=== PATIENT | female | born 1940 | race Caucasian/White ===

== ENCOUNTER 2019-03-18 10:01 | Outpatient (CLI) | payer MEDICARE, OTHER, SELFPAY ==
--- NOTE | 2019-03-18 10:15 | US_ITS ---
WS: [id number] INDICATION: Left neck pain and trouble swallowing TECHNIQUE: Ultrasound soft tissue FINDINGS: Ultrasound soft tissue bilateral neck. Multiple prominent left-sided lymph nodes the larges t measuring 9 mm with loss of the normal fatty hilum.. Enlarged right neck lymph node measuring 1.5 c m with loss of the normal fatty hilum. No drainable abscess or fluid collection. US/US soft tissue/extremity [id number] IMPRESSION: Abnormal enlarged bilateral cervical lymph nodes largest on the rig ht. Recommend further evaluation with neck CT or PET/CT.
== END 2019-03-18 10:02 | disposition home or self-care (01) ==
LOC: RAD 10:08
PROVIDERS: Family Provider Family Medicine; PCP Family Medicine; Visit Provider Internal Medicine
DX: R59.0 Localized enlarged lymph nodes (principal); M54.2 Cervicalgia; R13.10 Dysphagia, unspecified
CPT/HCPCS: 76882